=== PATIENT | female | born 1985 | race Two or more races ===

== ENCOUNTER 2022-06-03 00:52 | Emergency (ER) | payer MEDICAID ==
[~2022-06-03] VITALS: Ht 165.1 cm; Wt 94.8 kg
[2022-06-03 01:49] VITALS: BP 126/80
[2022-06-03] MEDS ORDERED: IBUP800T27 PO (03:07)
[2022-06-03] MEDS ORDERED: KETOROLAC TROMETH 60MG/2ML VIAL IM ONE (03:15)
== END 2022-06-03 03:19 | disposition home or self-care (01) ==
LOC: ER 00:52
DX: S16.1XXA Strain of muscle, fascia and tendon at neck level, initial encounter (principal); X58.XXXA Exposure to other specified factors, initial encounter; Y93.89 Activity, other specified; Y92.89 Other specified places as the place of occurrence of the external cause; Y99.8 Other external cause status
CPT/HCPCS: 96372; 99283; J1885